=== PATIENT | female | born 1955 | race Caucasian/White ===

== ENCOUNTER 2017-04-18 09:12 | Day surgery (SDC) | payer BC ==
[2017-04-10 17:31] LABS: BASOPHILS 0.5 %; BASOPHILS ABSOLUTE 0.02 10/3/uL (0.0-0.16); EOSINOPHILS ABSOLUTE 0.26 10/3/uL (0.0-0.53); HEMATOCRIT 33.3 % (36.0-48.0); HEMOGLOBIN 11.6 g/dL (12.0-16.0); IMMATURE GRANULOCYTES 0.2 %; IMMATURE GRANULOCYTES ABSOLUTE 0.01 10/3/uL (0.0-0.11); LYMPHOCYTES 38.4 %; LYMPHOCYTES ABSOLUTE 1.67 10/3/uL (0.67-4.30); MEAN CORPUS HGB CONC 34.8 g/dL (32.0-36.0); MEAN CORPUSCULAR HEMOGLOB 31.2 pg (26.0-34.0); MEAN CORPUSCULAR VOLUME 89.5 fL (80-100); MONOCYTES 9.2 %; NEUTROPHILS 45.7 %; NEUTROPHILS ABSOLUTE 1.99 10/3/uL (2.02-8.40); PLATELET COUNT 268 10/3/uL (150-400); RBC DISTRIBUTION WIDTH 13.1 % (12.0-16.0); RED CELL COUNT 3.72 10/6/uL (4.0-5.6); WHITE BLOOD CELLS 4.4 10/3/uL (4.5-10.5)
[2017-04-10 17:32] LABS: MANUAL DIFF NO %
[2017-04-10 17:44] LABS: BUN (BLOOD UREA NITROGEN) 12 MG/DL (6-23); CALCIUM, SERUM 8.6 MG/DL (8.5-10.4); CHLORIDE, SERUM 104 MMOL/L (96-112); CO2 (CARBON DIOXIDE) 29 MMOL/L (24-34); CREATININE 0.74 MG/DL (0.55-1.02); GFR AFRICAN AMERICAN 100 ML/MIN (>=60); GFR NON AFRICAN AMERICAN 86 ML/MIN (>=60); GLUCOSE, SERUM 82 MG/DL (60-99); POTASSIUM, SERUM 4.2 MMOL/L (3.5-5.3); SODIUM, SERUM 135 MMOL/L (135-148)
--- NOTE | ~2017-04-18 | OP ---
Record Of Operation [facility] [address] [place]. [address] NAME: CULLEN HOOKS : 51 STATUS : REG [facility] PAT#: [id number] AGE: 62 ADM/REG DATE : 04/18/17 MR#: [id number] REPORT SERV DATE: 04/18/17 DICTATED BY: CHARLIE FOFANA DATE: 04/18/17 REPORT STATUS : Draft TRANSCRIBED BY: COLTON DATE: 04/18/17 DATE OF PROCEDURE: 04/18/2017 SERVICE: Otolaryngology. PREOPERATIVE DIAGNOSES: 1. Chronic right tympanic membrane perforation. 2. Conductive hearing loss. POSTOPERATIVE DIAGNOSES: 1. Chronic right tympanic membrane perforation. 2. Conductive hearing loss. PROCEDURE: Type 1 tympanoplasty. ANESTHESIA: General endotracheal anesthesia. COMPLICATIONS: None. SPECIMENS: None. FINDINGS: The patient had a 40% central perforation with clean middle ear mucosa and it was grafted with temporalis fascia. STATEMENT OF MEDICAL NECESSITY: This is a 62-year-old female referred to me for injury to her ear with drainage. After the drainage had cleared up, the injury left a perforation such that it did not heal spontaneously and has been present now for more than four months. My recommendation was to wait until summer time to do the surgery to avoid the risk of possibly getting a cold or flu while the patient was healing. STATEMENT OF OPERATION: The patient was brought to the operating room in supine position, transferred over to the operating room table. All pressure points were padded and general endotracheal anesthesia was established. Her head was turned to the left and the table was rotated 180 degrees. Using the microscope, the perforation was rimmed using a Stovall needle. The meatal flap was injected with 1% lidocaine with epinephrine and a four-quadrant injection was also performed. I also injected the postauricular area, where the intended incision site was for the graft. She was then prepped and draped in the usual fashion. Using a #15 blade, a 2 cm incision was made just overlying the temporalis. A Weitlaner was placed to retract the skin edges open and a temporalis graft was harvested and removed. The muscle was removed off it. It was pressed and dried and set aside for later use. The incision was closed with interrupted buried 4-0 Vicryl sutures and a running 5-0 fast absorbing gut suture. Next, using the microscope and a 6 mm speculum, an incision was made along the posterior aspect of the canal wall approximately 8-10 mm above the anulus. The flap was then elevated using an anulus elevator and a #20 suction. The annular ring was elevated out of its attachment. Along with the perforation, the tympanic membrane was elevated anteriorly. Once this was completed, the middle ear space was packed with Floxin- Record Of Operation [address] [id number] NAME: CULLEN HOOKS : 51 STATUS : REG [facility] PAT#: [id number] AGE: 62 ADM/REG DATE : 04/18/17 MR#: [id number] REPORT SERV DATE: 04/18/17 DICTATED BY: CHARLIE FOFANA DATE: 04/18/17 REPORT STATUS : Draft TRANSCRIBED BY: COLTON DATE: 04/18/17 soaked Gelfoam. Once this was completed, the graft had been previously taken was carved to fit the hole. It was then placed in an underlay type technique. The tympanomeatal flap was then rotated back down into position with the underlying graft fully encompassing the perforation and being held in place with the Gelfoam underneath. Gelfoam was then placed on top of the tympanomeatal flap and all the way up half-way through the canal. After this was completed, the remainder of the canal was filled with Neosporin type ointment and a mastoid dressing was applied. This concluded the case. The patient was turned back over to Anesthesia, where she awoke, was extubated, and transferred to the PACU in stable condition. PS/MODL Charlie Fofana MD / [id number] CC: MD DANTE Catherine SONJA B
[~2017-04-18 09:12] MED LIST: ESTRACE1 MG PO; GENERLAC; LEVOTHYROXIN25 MCG PO; WELLXL150 PO; ZOL100 PO
== END 2017-04-18 23:59 | disposition home or self-care (01) ==
LOC: MSC 09:12
PROVIDERS: Otolaryngology
PROC: 09U Ear, Nose, Sinus, Supplement (ICD-10-PCS; principal; 2017-04-18 10:45)
DX: H72.91 Unspecified perforation of tympanic membrane, right ear (principal); H90.2 Conductive hearing loss, unspecified
CPT/HCPCS: 80048; 85025; 93005; A9270-GY; J0690; J2250; J2405; J2550; J3010